=== PATIENT | male | born 1975 | race Caucasian/White ===

== ENCOUNTER 2017-02-04 16:24 | Emergency (ER) | payer BC ==
[2017-02-04 16:38] VITALS: BP 123/76; PULSE 87; RESP 16; TEMP 98.4
[2017-02-04] MEDS ORDERED: methylPREDNISolone SOD SUCCI 125 MG/2 ML VIAL IM STA (17:08)
[2017-02-04] MEDS ORDERED: KETOROLAC 60 MG/2 ML VIAL IM STA (17:08)
--- NOTE | 2017-02-04 17:08 | ED ---
Lower Extremity Injury HPI - General Chief Complaint: Extremity Injury, Lower Stated Complaint: Foot Pain Time Seen by Provider: 02/04/17 16:55 Source: patient, RN notes reviewed Mode of arrival: ambulatory Limitations: no limitations - History of Present Illness Initial Comments: 41-year-old male presents to the emergency department with a chief complaint of right toe pain. Patient's history of gout and states that he will this morning is that this has flared up. Patient states that he has pain to his right toe hurts that she just rashes across. Patient is much like his normal gout. Patient states that he has no falls traumas or injuries to the foot. Patient has any fever chills. Patient states she was concerned due to his symptoms without that he should be evaluated. Patient denies any recent fever, chills, shortness of breath, chest pain, back pain, abdominal pain, nausea vomiting, numbness or tingling, dysuria or hematuria, constipation or diarrhea, headaches or visual changes, or any other current symptoms. - Related Data Home Medications Medication Instructions Recorded Confirmed Ibuprofen [Motrin] 200 - 400 mg PO Q6HR PRN 02/04/17 02/04/17 Previous Rx's Medication Instructions Recorded predniSONE 50 mg PO DAILY #5 tab 02/04/17 Allergies Allergy/AdvReac Type Severity Reaction Status Date / Time No Known Allergies Allergy Verified 02/04/17 16:41 Review of Systems ROS Statement: Those systems with pertinent positive or pertinent negative responses have been documented in the HPI. ROS Other: All systems not noted in ROS Statement are negative. Past Medical History Past Medical History: No Reported History History of Any Multi-Drug Resistant Organisms: None Reported Past Surgical History: Hernia Repair Past Psychological History: No Psychological Hx Reported Smoking Status: Never smoker Past Alcohol Use History: Occasional Past Drug Use History: None Reported General Exam - General Exam Comments Initial Comments: General: The patient is awake and alert, in no distress, and does not appear acutely ill. Neck: The neck is supple, there is no tenderness. Cardiovascular: There is a regular rate and rhythm. No murmur, rub or gallop is appreciated. Respiratory: Lungs are clear to auscultation, respirations are non-labored, breath sounds are equal. No wheezes, stridor, rales, or rhonchi. Musculoskeletal: Sensation intact with 2+ pulses throughout the right lower extremity. Patient does have tenderness patient the right big toe with mild swelling and redness. There is no drainage no abrasion. Fund motion of right ankle. Neurological: CN II-XII intact, There are no obvious motor or sensory deficits. Coordination appears grossly intact. Speech is normal. Skin: Skin is warm and dry and no rashes or lesions are noted. Psychiatric: Normal mood and affect. Limitations: no limitations Course Vital Signs 02/04/17 16:35 Temperature 98.4 F Pulse Rate 87 Respiratory 16 Rate Blood Pressure 123/76 O2 Sat by Pulse 98 Oximetry Medical Decision Making - Medical Decision Making 41-year-old male with a past medical history of gout presents for what he thinks is a gout flare. This and will give him a short course of steroids. We did discuss follow-up with his doctor return parameters and all questions. Patient stated that he understood these agree with this plan. All questions have been answered. This time the patient will be discharged home. Disposition Clinical Impression: Acute gout Disposition: HOME SELF-CARE Condition: Stable Instructions: Gout (ED) Additional Instructions: Please use medication as discussed. Please follow up with family doctor if symptoms have not improved over the next two days. Please return to the emergency room if your symptoms increase or worsen or for any other concerns. Prescriptions: predniSONE 50 mg PO DAILY #5 tab Referrals: Biju Deleon MD [Primary Care Provider] - 1-2 days Time of Disposition: 17:08
== END 2017-02-04 17:21 | disposition home or self-care (01) ==
LOC: EC 16:24
DX: M10.9 Gout, unspecified (principal)
CPT/HCPCS: 99283; 96372 ×2; J2930; J1885

== ENCOUNTER 2017-03-12 11:08 | Inpatient (IN) | payer BC ==
[2017-03-12] MEDS ORDERED: FAMOTIDINE 20 MG/2 ML VIAL IV STA (11:47)
[2017-03-12] MEDS ORDERED: SODIUM CHLORIDE 0.9% 1,000 ML IV STA (11:47)
[2017-03-12] MEDS ORDERED: ONDANSETRON 4 MG/2 ML VIAL IVP STA (11:47)
--- NOTE | 2017-03-12 11:49 | ED ---
General Adult HPI - General Chief complaint: Abdominal Pain Stated complaint: abdominal Pain Time Seen by Provider: 03/12/17 11:42 Source: patient, RN notes reviewed Mode of arrival: ambulatory Limitations: no limitations - History of Present Illness Initial comments: 41-year-old male presents to the emergency Department chief complaint of right sided abdominal pain. Patient states this started ABOUT 8:00am. PATIENT STATES IN THE RIGHT SIDE OF HIS ABDOMEN. PATIENT STATES THE CHEST IS CONSTANT TYPE PAIN COMES AND GOES AND GETS WORSE. PATIENT STATES HE IS NO RADIATION PATIENT DENIES ANY RADIATION TO THE BACK. PATIENT DENIES ANY CHEST PAIN OR SHORTNESS OF BREATH WITH THIS. PATIENT STATES HE HAS HAD NAUSEA WITHOUT VOMITING. PATIENT DENIES ANY COUGH COLD. PATIENT WAS CONCERNED DUE TO HIS SYMPTOMS WITHOUT THAT HE SHOULD BE EVALUATED. Patient has a history of this any abdominal surgeries in the past.Patient denies any recent fever, chills, shortness of breath, chest pain, back pain, vomiting, numbness or tingling, dysuria or hematuria, constipation or diarrhea, headaches or visual changes, or any other current symptoms. - Related Data Home Medications Medication Instructions Recorded Confirmed Ibuprofen [Motrin] 800 mg PO DAILY PRN 03/12/17 03/12/17 Allergies Allergy/AdvReac Type Severity Reaction Status Date / Time No Known Allergies Allergy Verified 03/12/17 12:04 Review of Systems ROS Statement: Those systems with pertinent positive or pertinent negative responses have been documented in the HPI. ROS Other: All systems not noted in ROS Statement are negative. Past Medical History Past Medical History: No Reported History History of Any Multi-Drug Resistant Organisms: None Reported Past Surgical History: Hernia Repair Past Psychological History: No Psychological Hx Reported Smoking Status: Never smoker Past Alcohol Use History: Occasional Past Drug Use History: None Reported General Exam - General Exam Comments Initial Comments: General: The patient is awake and alert, in no distress, and does not appear acutely ill. Eye: Pupils are equal, round and reactive to light, extra-ocular movements are intact; there is normal conjunctiva bilaterally. No signs of icterus. Ears, nose, mouth and throat: There are moist mucous membranes. Neck: The neck is supple, there is no tenderness. Cardiovascular: There is a regular rate and rhythm. No murmur, rub or gallop is appreciated. Respiratory: Lungs are clear to auscultation, respirations are non-labored, breath sounds are equal. No wheezes, stridor, rales, or rhonchi. Gastrointestinal: Soft, non-distended, minimal right-sided tenderness of the abdomen without masses or organomegaly noted. There is no rebound or guarding present. No CVA tenderness. Bowel sounds are unremarkable. Back: There is no tenderness to palpation in the midline. There is no obvious deformity. No rashes noted. Musculoskeletal: Normal ROM, no tenderness, There is no pedal edema. There is no calf tenderness or swelling. Sensation intact. Pulses equal bilaterally 2+. Neurological: CN II-XII intact, There are no obvious motor or sensory deficits. Coordination appears grossly intact. Speech is normal. Skin: Skin is warm and dry and no rashes or lesions are noted. Psychiatric: Cooperative, appropriate mood & affect, normal judgment. Limitations: no limitations Course Vital Signs 03/12/17 11:17 Temperature 98.2 F Pulse Rate 74 Respiratory 16 Rate Blood Pressure 142/81 O2 Sat by Pulse 99 Oximetry EKG Findings - EKG Comments: EKG Findings:: normal sinus rhythm with sinus arrhythmia 60 bpm, normal axis, no atopy, no S-T depressions or elevations, Medical Decision Making - Medical Decision Making 41-year-old male presents to the emergency Department chief complaint abdominal pain. Similarly presented the physician elevated white count. Patient continues to have right-sided abdominal pain. At this time for a change. There is concern for possible acute early appendicitis. At this time Dr. Dr. Dr. Liu who states patient should be admitted. We will admit the patient keep him a meal at this time. - Lab Data Result diagrams: 03/12/17 11:55 03/12/17 11:55 Lab Results 03/12/17 03/12/17 03/12/17 Range/Units 11:55 11:55 11:55 WBC 7.1 (3.8-10.6) k/uL RBC 5.15 (4.30-5.90) m/uL Hgb 15.1 (13.0-17.5) gm/dL Hct 45.5 (39.0-53.0) % MCV 88.3 (80.0-100.0) fL MCH 29.2 (25.0-35.0) pg MCHC 33.1 (31.0-37.0) g/dL RDW 14.1 (11.5-15.5) % Plt Count 230 (150-450) k/uL Neutrophils % 65 % Lymphocytes % 22 % Monocytes % 7 % Eosinophils % 3 % Basophils % 1 % Neutrophils # 4.7 (1.3-7.7) k/uL Lymphocytes # 1.5 (1.0-4.8) k/uL Monocytes # 0.5 (0-1.0) k/uL Eosinophils # 0.2 (0-0.7) k/uL Basophils # 0.0 (0-0.2) k/uL Sodium 139 (137-145) mmol/L Potassium 4.1 (3.5-5.1) mmol/L Chloride 107 (98-107) mmol/L Carbon Dioxide 23 (22-30) mmol/L Anion Gap 9 mmol/L BUN 20 (9-20) mg/dL Creatinine 1.11 (0.66-1.25) mg/dL Est GFR (MDRD) Af Amer >60 (>60 ml/min/1.73 sqM) Est GFR (MDRD) Non-Af >60 (>60 ml/min/1.73 sqM) Glucose 119 H (74-99) mg/dL Calcium 9.4 (8.4-10.2) mg/dL Total Bilirubin 0.4 (0.2-1.3) mg/dL AST 28 (17-59) U/L ALT 57 (21-72) U/L Alkaline Phosphatase 74 (38-126) U/L Total Creatine Kinase 71 (55-170) U/L CK-MB (CK-2) 1.4 (0.0-2.4) ng/mL CK-MB (CK-2) Rel Index 2.0 Troponin I <0.012 (0.000-0.034) ng/mL Total Protein 6.2 L (6.3-8.2) g/dL Albumin 3.8 (3.5-5.0) g/dL Amylase <30 L (30-110) U/L Lipase 39 (23-300) U/L Urine Color Urine Appearance (Clear) Urine pH (5.0-8.0) Ur Specific [place] (1.001-1.035) Urine Protein (Negative) Urine Glucose (UA) (Negative) Urine Ketones (Negative) Urine Blood (Negative) Urine Nitrite (Negative) Urine Bilirubin (Negative) Urine Urobilinogen (<2.0) mg/dL Ur Leukocyte Esterase (Negative) 03/12/17 Range/Units 12:26 WBC (3.8-10.6) k/uL RBC (4.30-5.90) m/uL Hgb (13.0-17.5) gm/dL Hct (39.0-53.0) % MCV (80.0-100.0) fL MCH (25.0-35.0) pg MCHC (31.0-37.0) g/dL RDW (11.5-15.5) % Plt Count (150-450) k/uL Neutrophils % % Lymphocytes % % Monocytes % % Eosinophils % % Basophils % % Neutrophils # (1.3-7.7) k/uL Lymphocytes # (1.0-4.8) k/uL Monocytes # (0-1.0) k/uL Eosinophils # (0-0.7) k/uL Basophils # (0-0.2) k/uL Sodium (137-145) mmol/L Potassium (3.5-5.1) mmol/L Chloride (98-107) mmol/L Carbon Dioxide (22-30) mmol/L Anion Gap mmol/L BUN (9-20) mg/dL Creatinine (0.66-1.25) mg/dL Est GFR (MDRD) Af Amer (>60 ml/min/1.73 sqM) Est GFR (MDRD) Non-Af (>60 ml/min/1.73 sqM) Glucose (74-99) mg/dL Calcium (8.4-10.2) mg/dL Total Bilirubin (0.2-1.3) mg/dL AST (17-59) U/L ALT (21-72) U/L Alkaline Phosphatase (38-126) U/L Total Creatine Kinase (55-170) U/L CK-MB (CK-2) (0.0-2.4) ng/mL CK-MB (CK-2) Rel Index Troponin I (0.000-0.034) ng/mL Total Protein (6.3-8.2) g/dL Albumin (3.5-5.0) g/dL Amylase (30-110) U/L Lipase (23-300) U/L Urine Color Yellow Urine Appearance Clear (Clear) Urine pH 6.0 (5.0-8.0) Ur Specific [place] 1.017 (1.001-1.035) Urine Protein Negative (Negative) Urine Glucose (UA) Negative (Negative) Urine Ketones Negative (Negative) Urine Blood Negative (Negative) Urine Nitrite Negative (Negative) Urine Bilirubin Negative (Negative) Urine Urobilinogen <2.0 (<2.0) mg/dL Ur Leukocyte Esterase Negative (Negative) - Radiology Data Radiology results: report reviewed, image reviewed Disposition Clinical Impression: Acute appendicitis, Abdominal pain Disposition: ADMITTED IP TO THIS [facility] Condition: Stable Referrals: Biju Deleon MD [Primary Care Provider] - 1-2 days Time of Disposition: 14:23 Decision Date: 03/12/17 Decision Time: 14:23
[2017-03-12 12:19] LABS: Basophils % (A) 1 %; CH 30.6; CHCM 34.9; Eosinophils # (A) 0.2 k/uL (0-0.7); Eosinophils % (A) 3 %; HCT 45.5 % (39.0-53.0); HDW 2.58; HGB 15.1 gm/dL (13.0-17.5); Luc # (Auto) 0.19; Luc % (Auto) 3; Lymphocytes # (A) 1.5 k/uL (1.0-4.8); Lymphocytes % (A) 22 %; MCH 29.2 pg (25.0-35.0); MCHC 33.1 g/dL (31.0-37.0); MCV 88.3 fL (80.0-100.0); Mean Platelet Volume 7.3; Monocytes # (A) 0.5 k/uL (0-1.0); Monocytes % (A) 7 %; Neutrophils # (A) 4.7 k/uL (1.3-7.7); Neutrophils % (A) 65 %; RBC 5.15 m/uL (4.30-5.90); RDW 14.1 % (11.5-15.5); WBC 7.1 k/uL (3.8-10.6); WBC (Perox) 6.83
[2017-03-12 12:28] LABS: ALT 57 U/L (21-72); AST 28 U/L (17-59); Alkaline Phosphatase 74 U/L (38-126); Amylase <30 U/L (30-110); Anion Gap 9 mmol/L; Blood Urea Nitrogen 20 mg/dL (9-20); Calcium 9.4 mg/dL (8.4-10.2); Carbon Dioxide 23 mmol/L (22-30); Chloride 107 mmol/L (98-107); Glucose 119 mg/dL (74-99); Non-African American GFR(MDRD) >60 (>60 ml/min/1.73 sqM); Potassium 4.1 mmol/L (3.5-5.1); Sodium 139 mmol/L (137-145); Total Bilirubin 0.4 mg/dL (0.2-1.3); Total Protein 6.2 g/dL (6.3-8.2)
[2017-03-12 12:35] LABS: Appearance,Urine Clear (Clear); Bilirubin,Urine Negative (Negative); Glucose,Urine (UA) Negative (Negative); Ketones,Urine Negative (Negative); Leukocyte Esterase,Urine Negative (Negative); Nitrite,Urine Negative (Negative); Protein,Urine Negative (Negative); Specific Gravity,Urine 1.017 (1.001-1.035); UA Billing (MACRO vs. MICRO) CHEM; Urobilinogen,Urine <2.0 mg/dL (<2.0)
[2017-03-12 12:36] LABS: Creatine Kinase 71 U/L (55-170)
--- NOTE | 2017-03-12 12:38 | XR ---
EXAMINATION TYPE: XR abdomen 2V DATE OF EXAM: 03/12/2017 12:30 PM CLINICAL HISTORY: Right-sided abdominal pain and nausea for one day TECHNIQUE: Single supine KUB image of the abdomen is obtained. COMPARISON: None. FINDINGS: Scattered gas is seen in non-distended small bowel loops. Gas and fecal material is seen in non-distended colon. There are no abnormal calcifications appreciated. The lung bases are clear and the osseous structures are intact. IMPRESSION: Nonobstructive bowel gas pattern.
[2017-03-12 12:50] LABS: Creatine Kinase MB 1.4 ng/mL (0.0-2.4); Troponin I <0.012 ng/mL (0.000-0.034)
[2017-03-12] MEDS ORDERED: RX INFO: IV CONTRAST WAS GIVEN 1 EACH MISC MISCELLANE PRN (13:00)
[2017-03-12] MEDS ORDERED: DICYCLOMINE 10 MG/ML 2 ML AMP IM STA (13:46)
[2017-03-12] MEDS ORDERED: KETOROLAC 30 MG/ML 1 ML VIAL IVP STA (13:46)
--- NOTE | 2017-03-12 14:08 | CT ---
EXAMINATION TYPE: CT abdomen pelvis w con DATE OF EXAM: 03/12/2017 COMPARISON: NONE HISTORY: Abdominal pain CT DLP: 2352 mGycm CONTRAST: CT scan of the abdomen and pelvis is performed without Oral Contrast and with IV Contrast, patient in jected with 100 mL of Omnipaque 300. FINDINGS: LUNG BASES-: No visible nodule. No infiltrate. LIVER/GB: No calcified gallstones. No space occupying hepatic lesion. Biliary tree is of normal ca liber. There is evidence of fatty infiltration. PANCREAS: No inflammation. No distinct mass. SPLEEN: No splenic enlargement. No lesion seen. ADRENALS: No nodule. No thickening. KIDNEYS/BLADDER: No hydronephrosis. Nonobstructing 3 mm calculus midpole right kidney. No disctinct renal mass. Urinary bladder grossly unremarkable. BOWEL: The appendix is dilated at 1.2 cm and demonstrates internal foci of increased attenuation over plaque felt to reflect appendicoliths. No significant periappendiceal inflammatory change however is identified. Correlate clinically for early acute appendicitis. Normal bowel caliber. GENITAL ORGANS: No gross abnormality. LYMPH NODES: No greater than 1cm abdominal or pelvic lymph nodes are appreciated. AORTA: No significant abnormality. OSSEOUS STRUCTURES: No significant abnormality is seen. OTHER: Tiny fat-containing umbilical hernia. IMPRESSION: 1. Dilated appendix with appendicoliths and absence of inflammatory change. Correlate clinically for early acute appendicitis. 2. Fatty liver. 3. Nonobstructing 3 mm calculus mid pole right kidney.
[2017-03-12] MEDS ORDERED: HYDROmorphone 1 MG/ML 1 ML SYRINGE IVP STA (14:16)
[2017-03-12] MEDS ORDERED: NALOXONE 0.4 MG/ML 1 ML VIAL IV PRN ×2 (14:23→20:39)
[2017-03-12] MEDS: SODIUM CHLORIDE 0.9% 1,000 ML IV SCH (15:21)
[2017-03-12] MEDS ORDERED: ceFAZolin 3 GM in SODIUM CHLORIDE 0.9% 100 ML IVPB ONE (16:00)
[2017-03-12] MEDS ORDERED: ACETAMINOPHEN IV (For NPO) 1,000 MG in EMPTY BAG 1 BAG IVPB ONE (16:00)
[2017-03-12] MEDS ORDERED: HEPARIN SODIUM,PORCINE 5,000 UNIT/ML 1 ML VIAL SQ ONE (16:00)
--- NOTE | 2017-03-12 16:16 | P.GSHP ---
History of Present Illness H&P Date: 03/12/17 CHIEF COMPLAINT: Right lower quadrant abdominal pain for less than 24 hrs. HISTORY OF PRESENT ILLNESS: The patient is a previously healthy 41-year-old male who presents with less than 1 day history of periumbilical with right lower quadrant abdominal pain. He woke up about 8 a.m. this morning approximately 8 hours ago with increasing periumbilical pain. He denies any previous episodes. He states the intensity of the pain is moderate to severe. He presented with CT abdomen and pelvis consistent with dilated appendix suspicious for appendicitis hence general surgery admission. PAST MEDICAL HISTORY: See list. PAST SURGICAL HISTORY: See list. CURRENT MEDICATIONS: See list. ALLERGIES: DENIES. SOCIAL HISTORY: Non-tobacco user. FAMILY HISTORY: Denies Crohns disease and ulcerative colitis. REVIEW OF ORGAN SYSTEMS: CONSTITUTIONAL: Denies any fever or chills. HEENT: Denies any trouble with vision, hearing or nosebleeds. No difficulty swallowing. LYMPHATIC: The patient denies any lumps and bumps around the neck. ENDOCRINE: Denies any thyroid disorders. Denies any blood sugar glucose intolerance. RESPIRATORY: Denies shortness of breath including chronic cough. CARDIOVASCULAR: Denies history of chest pain with exertion. GASTROINTESTINAL: Denies regurgitation of bile at night as well as intermittent nausea. No blood in stools. GENITOURINARY: Denies any blood in urine or increased urinary frequency. Previous history of kidney stones.` MUSCULOSKELETAL: Has current joint arthritis. NEUROLOGIC: Denies any numbness or tingling along the distal extremities. No seizure disorders or headaches. PSYCHIATRIC: Denies any depression or suicidal ideation. HEMATOLOGIC: Denies any abnormal bleeding or bruising. PHYSICAL EXAMINATION: Vital Signs Temp 98.2 F 03/12/17 11:17 Pulse 73 03/12/17 15:23 Resp 16 03/12/17 15:23 BP 120/73 03/12/17 15:23 Pulse Ox 98 03/12/17 12:19 Intake & Output 03/11/17 03/12/17 03/12/17 18:59 06:59 18:59 Weight 136.078 kg GENERAL: Well developed and in no acute distress. Pleasant. HEENT: No sclera icterus. Extraocular movements grossly intact. Moist buccal mucosa. Head is atraumatic, normocephalic. Hears conversational speech. No nasal drainage. NECK: Supple without lymphadenopathy. No JV distention. CHEST: Non-labored respirations and equal bilateral excursions. CARDIOVASCULAR: Regular rate and rhythm. Palpable 2+ radial pulses. ABDOMEN: Soft, tender at the right lower quadrant. No peritonitis. MUSCULOSKELETAL: No clubbing, cyanosis or edema. NEUROLOGIC: No focal or lateralizing signs. PSYCH: Appropriate affect. Alert and oriented to person, place and time. LABS: Laboratory Last Values WBC 7.1 k/uL (3.8-10.6) 03/12/17 11:55 RBC 5.15 m/uL (4.30-5.90) 03/12/17 11:55 Hgb 15.1 gm/dL (13.0-17.5) 03/12/17 11:55 Hct 45.5 % (39.0-53.0) 03/12/17 11:55 MCV 88.3 fL (80.0-100.0) 03/12/17 11:55 MCH 29.2 pg (25.0-35.0) 03/12/17 11:55 MCHC 33.1 g/dL (31.0-37.0) 03/12/17 11:55 RDW 14.1 % (11.5-15.5) 03/12/17 11:55 Plt Count 230 k/uL (150-450) 03/12/17 11:55 Neutrophils % 65 % 03/12/17 11:55 Lymphocytes % 22 % 03/12/17 11:55 Monocytes % 7 % 03/12/17 11:55 Eosinophils % 3 % 03/12/17 11:55 Basophils % 1 % 03/12/17 11:55 Neutrophils # 4.7 k/uL (1.3-7.7) 03/12/17 11:55 Lymphocytes # 1.5 k/uL (1.0-4.8) 03/12/17 11:55 Monocytes # 0.5 k/uL (0-1.0) 03/12/17 11:55 Eosinophils # 0.2 k/uL (0-0.7) 03/12/17 11:55 Basophils # 0.0 k/uL (0-0.2) 03/12/17 11:55 Sodium 139 mmol/L (137-145) 03/12/17 11:55 Potassium 4.1 mmol/L (3.5-5.1) 03/12/17 11:55 Chloride 107 mmol/L (98-107) 03/12/17 11:55 Carbon Dioxide 23 mmol/L (22-30) 03/12/17 11:55 Anion Gap 9 mmol/L 03/12/17 11:55 BUN 20 mg/dL (9-20) 03/12/17 11:55 Creatinine 1.11 mg/dL (0.66-1.25) 03/12/17 11:55 Est GFR (MDRD) Af Amer >60 (>60 ml/min/1.73 sqM) 03/12/17 11:55 Est GFR (MDRD) Non-Af >60 (>60 ml/min/1.73 sqM) 03/12/17 11:55 Glucose 119 mg/dL (74-99) H 03/12/17 11:55 Calcium 9.4 mg/dL (8.4-10.2) 03/12/17 11:55 Total Bilirubin 0.4 mg/dL (0.2-1.3) 03/12/17 11:55 AST 28 U/L (17-59) 03/12/17 11:55 ALT 57 U/L (21-72) 03/12/17 11:55 Alkaline Phosphatase 74 U/L (38-126) 03/12/17 11:55 Total Creatine Kinase 71 U/L (55-170) 03/12/17 11:55 CK-MB (CK-2) 1.4 ng/mL (0.0-2.4) 03/12/17 11:55 CK-MB (CK-2) Rel Index 2.0 03/12/17 11:55 Troponin I <0.012 ng/mL (0.000-0.034) 03/12/17 11:55 Total Protein 6.2 g/dL (6.3-8.2) L 03/12/17 11:55 Albumin 3.8 g/dL (3.5-5.0) 03/12/17 11:55 Amylase <30 U/L (30-110) L 03/12/17 11:55 Lipase 39 U/L (23-300) 03/12/17 11:55 Urine Color Yellow 03/12/17 12:26 Urine Appearance Clear (Clear) 03/12/17 12:26 Urine pH 6.0 (5.0-8.0) 03/12/17 12:26 Ur Specific [place] 1.017 (1.001-1.035) 03/12/17 12:26 Urine Protein Negative (Negative) 03/12/17 12:26 Urine Glucose (UA) Negative (Negative) 03/12/17 12:26 Urine Ketones Negative (Negative) 03/12/17 12:26 Urine Blood Negative (Negative) 03/12/17 12:26 Urine Nitrite Negative (Negative) 03/12/17 12:26 Urine Bilirubin Negative (Negative) 03/12/17 12:26 Urine Urobilinogen <2.0 mg/dL (<2.0) 03/12/17 12:26 Ur Leukocyte Esterase Negative (Negative) 03/12/17 12:26 STUDIES: CT of the abdomen and pelvis reviewed with findings consistent with dilated appendix with appendicolith. ASSESSMENT: 1. Right lower quadrant pain. 2. Appendicitis. PLAN: 1. I have discussed benefits and risks of laparoscopic appendectomy. 2. Bilateral SCDs. 3. Antibiotics. 4. DVT prophylaxis with heparin. 5. GI prophylaxis. Thank you very much for allowing me to participate in the care of your patient. Past Medical History Past Medical History: No Reported History History of Any Multi-Drug Resistant Organisms: None Reported Past Surgical History: Hernia Repair Past Psychological History: No Psychological Hx Reported Smoking Status: Never smoker Past Alcohol Use History: Occasional Past Drug Use History: None Reported Medications and Allergies Home Medications Medication Instructions Recorded Confirmed Type Ibuprofen [Motrin] 800 mg PO DAILY PRN 03/12/17 03/12/17 History Allergies Allergy/AdvReac Type Severity Reaction Status Date / Time No Known Allergies Allergy Verified 03/12/17 12:04 Surgical - Exam Vital Signs Temp Pulse Resp BP Pulse Ox 98.2 F 74 16 142/81 99 03/12/17 11:17 03/12/17 11:17 03/12/17 11:17 03/12/17 11:17 03/12/17 11:17 Results - Labs 03/12/17 11:55 03/12/17 11:55 Abnormal Lab Results - Last 24 Hours (Table) 03/12/17 Range/Units 11:55 Glucose 119 H (74-99) mg/dL Total Protein 6.2 L (6.3-8.2) g/dL Amylase <30 L (30-110) U/L Microbiology - Last 24 Hours (Table) 03/12/17 12:26 Urine Culture - Preliminary Urine,Clean Catch Diabetes panel 03/12/17 Range/Units 11:55 Sodium 139 (137-145) mmol/L Potassium 4.1 (3.5-5.1) mmol/L Chloride 107 (98-107) mmol/L Carbon Dioxide 23 (22-30) mmol/L BUN 20 (9-20) mg/dL Creatinine 1.11 (0.66-1.25) mg/dL Glucose 119 H (74-99) mg/dL Calcium 9.4 (8.4-10.2) mg/dL AST 28 (17-59) U/L ALT 57 (21-72) U/L Alkaline Phosphatase 74 (38-126) U/L Total Protein 6.2 L (6.3-8.2) g/dL Albumin 3.8 (3.5-5.0) g/dL Calcium panel 03/12/17 Range/Units 11:55 Calcium 9.4 (8.4-10.2) mg/dL Albumin 3.8 (3.5-5.0) g/dL Pituitary panel 03/12/17 Range/Units 11:55 Sodium 139 (137-145) mmol/L Potassium 4.1 (3.5-5.1) mmol/L Chloride 107 (98-107) mmol/L Carbon Dioxide 23 (22-30) mmol/L BUN 20 (9-20) mg/dL Creatinine 1.11 (0.66-1.25) mg/dL Glucose 119 H (74-99) mg/dL Calcium 9.4 (8.4-10.2) mg/dL Adrenal panel 03/12/17 Range/Units 11:55 Sodium 139 (137-145) mmol/L Potassium 4.1 (3.5-5.1) mmol/L Chloride 107 (98-107) mmol/L Carbon Dioxide 23 (22-30) mmol/L BUN 20 (9-20) mg/dL Creatinine 1.11 (0.66-1.25) mg/dL Glucose 119 H (74-99) mg/dL Calcium 9.4 (8.4-10.2) mg/dL Total Bilirubin 0.4 (0.2-1.3) mg/dL AST 28 (17-59) U/L ALT 57 (21-72) U/L Alkaline Phosphatase 74 (38-126) U/L Total Protein 6.2 L (6.3-8.2) g/dL Albumin 3.8 (3.5-5.0) g/dL
[2017-03-12] MEDS: HYDROmorphone 1 MG/ML 1 ML SYRINGE IV PRN (16:37)
[2017-03-12] MEDS ORDERED: PROPOFOL 10 MG/ML 20 ML VIAL IV ONE (18:39)
[2017-03-12] MEDS ORDERED: fentaNYL (PF) 50 MCG/ML 2 ML AMP ONE (18:39)
[2017-03-12] MEDS ORDERED: SUCCINYLCHOLINE CHLORIDE VIAL 200 MG/10 ML VIAL IV ONE (18:39)
[2017-03-12] MEDS ORDERED: IV FLUID CONTINUATION 700 ML IV ONE (18:39)
[2017-03-12] MEDS ORDERED: LIDOCAINE 1% INJ 10MG/ML (20 ML MDV) ONE (18:39)
[2017-03-12] MEDS ORDERED: ROCURONIUM BROMIDE 10 MG/ML 10 ML VIAL IV ONE (18:39)
[2017-03-12] MEDS ORDERED: NEOSTIGMINE 1 MG/ML 10 ML VIAL ONE (18:39)
[2017-03-12] MEDS ORDERED: GLYCOPYRROLATE 0.2 MG/ML 2 ML VIAL ONE (18:39)
[2017-03-12] MEDS ORDERED: MIDAZOLAM 2 MG/2 ML VIAL ONE (18:39)
[2017-03-12] MEDS ORDERED: SODIUM CHLORIDE 0.9% 50 ML with ceFAZolin 3,000 MG IV ONE ×2 (18:49)
[2017-03-12] MEDS ORDERED: BUPIVACAINE-EPI 0.5%-1:200,000 10 ML VIAL SQ ONE (19:12)
[2017-03-12] MEDS ORDERED: LACTATED RINGERS 1,000 ML IV ONE (19:36)
--- NOTE | 2017-03-12 20:47 | P.PCN ---
Date of Procedure: 03/12/17 Preoperative Diagnosis: Acute appendicitis Postoperative Diagnosis: Same Procedure(s) Performed: Laparoscopic appendectomy Implants: Anesthesia: GETA, local Surgeon: Kayla Liu Estimated Blood Loss (ml): 5 Pathology: other (Appendix) Condition: stable Disposition: floor Indications for Procedure: Operative Findings: 1. Acute nonperforated appendicitis, retrocecal 2. Left inguinal hernia. 3. No recurrent hernia on the right. Description of Procedure:
[2017-03-12] MEDS: HYDROmorphone 1 MG/ML 1 ML SYRINGE IVP ONE ×2 (21:11→21:16)
[2017-03-12 22:12] VITALS: RESP 16
[2017-03-13] MEDS: SODIUM CHLORIDE 0.9% 1,000 ML IV SCH (01:56)
[2017-03-13] MEDS: HYDROmorphone 1 MG/ML 1 ML SYRINGE IV PRN ×3 (01:56→09:12)
[2017-03-13 08:17] VITALS: BP 141/81; PULSE 101; TEMP 98.1
--- NOTE | 2017-03-13 10:35 | P.DS ---
Providers Date of admission: 03/12/17 14:40 Expected date of discharge: 03/13/17 Attending physician: Kayla Liu Primary care physician: Biju Gonzalez [facility] Course: 41-year-old male who presented to the emergency room on 03/12/2017 with a chief complaint of right-sided abdominal pain. Patient described the pain as constant pain that comes and goes and also gets worse. Patient denied any chest pain or shortness of breath. Patient did experience nausea without vomiting. White count was 7.1 and hemoglobin was 15.1. Patient was admitted to the hospital under the care of Dr. Liu for possible acute appendicitis. The patient denies any medical history. Patient has a past surgical history of a hernia repair. CT of the pelvis and abdomen (03/12/2017) showed dilated appendix with appendicloths and absence of inflammatory changes, fatty liver, and nonobstructing 3 mm calculus midpole right kidney. On 03/12/2017 patient underwent laparoscopic appendectomy with Dr. Liu. Operative findings included acute nonperforated appendicitis, retrocecal, left inguinal hernia, and no recurrent hernia on the right. The patient's postoperative course was uncomplicated. The patient was seen this morning at the bedside. Patient stated he was feeling well and pain was controlled. Patient denies nausea vomiting shortness of breath or chest pain. The patient has been afebrile since surgery. Patient's last temperature was 98.1 F oral. Blood pressure stable. Impression discharge diagnosis: Present on admission right-sided abdominal pain suspect due to possible acute appendicitis Acute nonperforated appendicitis Left inguinal hernia Status post 03/12/2017 by laparoscopic appendectomy Patient Condition at Discharge: Stable Plan - Discharge Summary New Discharge Prescriptions: New HYDROcodone/APAP 5-325MG [Jackson 5-325] 1 tab PO Q4HR PRN #15 tab PRN Reason: Mild Pain Continue Ibuprofen [Motrin] 800 mg PO DAILY PRN PRN Reason: Pain Discharge Medication List Ibuprofen [Motrin] 800 mg PO DAILY PRN 03/12/17 [History] HYDROcodone/APAP 5-325MG [Jackson 5-325] 1 tab PO Q4HR PRN #15 tab 03/13/17 [Rx] Follow up Appointment(s)/Referral(s): Kayla Liu MD [STAFF PHYSICIAN] - 03/20/17 Biju Deleon MD [Primary Care Provider] - 1-2 days Patient Instructions/Handouts: Laparoscopic Appendectomy (DC) Activity/Diet/Wound Care/Special Instructions: No lifting over 4 pounds in 2 weeks. Discharge Disposition: HOME SELF-CARE
--- NOTE | 2017-04-11 09:37 | P.OP ---
Date of Procedure: 03/12/17 Description of Procedure: SURGEON: MORGAN ANN MD JAVA DEVELOPER WITH SECURITY CLEARANCE: None. PREOPERATIVE DIAGNOSES: 1. Right lower quadrant abdominal pain. 2. Acute appendicitis. 3. Morbid obesity due to excess calories. 4. Body mass index, 40.7. POSTOPERATIVE DIAGNOSES: 1. Right lower quadrant abdominal pain. 2. Acute appendicitis. 3. Morbid obesity due to excess calories. 4. Body mass index, 40.7. 5. Retrocecal acute appendicitis with periappendicitis, without rupture. 6. Left inguinal hernia, indirect. PROCEDURES PERFORMED: 1. Diagnostic laparoscopy. 2. Laparoscopic appendectomy. ANESTHESIA: General with 30 mL 0.50% Marcaine with epinephrine. ESTIMATED BLOOD LOSS: 5 mL. SPECIMENS REMOVED: Appendix. COMPLICATIONS: None. OPERATIVE FINDINGS: 1. Acute nonperforated appendicitis, retrocecal 2. Left inguinal hernia. 3. No recurrent hernia on the right. INDICATIONS: The patient is a 41-year-old male who presents with less than a 24-hour history of right lower quadrant abdominal pain. He reported nausea, including anorexia. He had studies consistent with with acute appendicitis. Benefits and risks, including possibility of open technique were described at length. Informed consent was obtained. DESCRIPTION OR PROCEDURE: Patient was brought to the operating room, laid in supine position. After general induction, the abdomen was prepped and draped in standard sterile fashion. Prior to incision, a timeout protocol was confirmed with surgical team regarding patient's name including procedure to be performed. Preoperative medications were given intraoperatively. Additionally, bilateral SCDs including heparin 5000 units was administered. A transverse infraumbilical incision was made after localizing the skin with anesthetic. A 0 degree 12 mm laparoscopic trocar entry was performed and entered into the peritoneal cavity. The abdomen was insufflated to 15 mmHg of pressure, which he tolerated well. Diagnostic laparoscopy demonstrated no injury to bowel, viscera or mesentery. A 5 mm port was placed just above the pubis. A separate 5 mm port was placed at the left upper quadrant all under direct visualization. The patient was placed in Trendelenburg position with the right side up. A systematic view within the abdominal cavity was started with the small bowel which was unremarkable. The gallbladder was unremarkable. The base of the cecum was without inflammation. The mid to distal appendix was dilated consistent with acute appendicitis including periappendicitis. Appendix was retrocecal initially ascending to the gallbladder. Moderate dissection was performed to free the appendix from the right lower quadrant and advancing to the right flank. A 60 mm Endo LAURO echelon stapler was fired using a rivera vascular load. A staple load was used for complete division of the base of the appendix. The staple line was completely hemostatic. The specimen was removed from the abdominal cavity with a Endo Catch bag through the 12 mm trocar. All instruments and pneumoperitoneum were evacuated from the abdominal cavity. The fascial defect was reapproximated using 0 Vicryl in a Keenan Middleton. A total of 30 mL 0.50 % Marcaine with epinephrine was infiltrated in all wounds for postop analgesia. Dermabond was applied to the skin after reapproximating the incisions with 4-0 Monocryl as described. Skin was cleansed with dilute hydrogen peroxide. At the end of the procedure, needle, sponge, and instrument count was verified correct by director surgical. The patient had tolerated the procedure well, was taken to the postanesthesia care unit in stable condition. Intraoperative abdominal films were reviewed with the patient's family.
== END 2017-03-13 11:58 | disposition home or self-care (01) | DRG 343 ==
LOC: EC 11:08 → 3SUR 14:40 → 5MS5E 15:05
PROVIDERS: ADMIT Surgery Plastic and Reconstructive Surgery; ATTEND Surgery Plastic and Reconstructive Surgery
PROC: 0DTJ4ZZ Resection of Appendix, Percutaneous Endoscopic Approach (ICD-10-PCS; principal; 2017-03-12 08:55)
DX: K35.80 Unspecified acute appendicitis (principal); K76.0 Fatty (change of) liver, not elsewhere classified; K40.90 Unilateral inguinal hernia, without obstruction or gangrene, not specified as recurrent; N20.0 Calculus of kidney; Z87.19 Personal history of other diseases of the digestive system
CPT/HCPCS: 36415; 74020; 74177; 80053; 81003; 82150; 82550; 82553; 83690; 84484; 85025; 87086; 88304; 93005; 96361; 96372; 96374; 96375; 99285

== ENCOUNTER 2019-01-13 22:56 | Emergency (ER) | payer BC, OTHER ==
[2019-01-13] MEDS ORDERED: DIPH,PERTUS(ACELL)TETVAC-LF 0.5 ML VIAL IM ONE (23:21)
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
[2019-01-13 23:43] VITALS: BP 132/70; PULSE 90; RESP 18; TEMP 98.9
[2019-01-14 12:05] LABS: HIV 1 AB Non-Reactive (Non-Reactive); HIV AB P24 Non-Reactive (Non-Reactive); HIV P24 AG Non-Reactive (Non-Reactive)
[2019-01-14 12:54] LABS: Hepatitis C IgG Antibody Non-Reactive (Non-Reactive)
== END 2019-01-14 00:08 | disposition home or self-care (01) ==
LOC: EC 22:56
DX: S60.512A Abrasion of left hand, initial encounter (principal); S09.90XA Unspecified injury of head, initial encounter; Z23 Encounter for immunization; W26.8XXA Contact with other sharp object(s), not elsewhere classified, initial encounter; Y93.89 Activity, other specified; Y92.149 Unspecified place in prison as the place of occurrence of the external cause; Y99.0 Civilian activity done for income or pay
CPT/HCPCS: 36415; 86706; 86803; 87390; 90471; 90715; 99283

== ENCOUNTER → 2019-01-14 | Outpatient (CLI) | payer OTHER ==
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
== END | disposition home or self-care (01) ==
LOC: RAD 12:26
PROVIDERS: ATTEND Emergency Medicine
DX: S93.402A Sprain of unspecified ligament of left ankle, initial encounter (principal); S93.602A Unspecified sprain of left foot, initial encounter

== ENCOUNTER 2019-06-28 21:52 | Emergency (ER) | payer BC ==
[2019-06-28 22:02] VITALS: BP 133/84; PULSE 92; RESP 18; TEMP 97.5
[2019-06-28] MEDS ORDERED: KETOROLAC 60 MG/2 ML VIAL IM STA (22:06)
--- NOTE | 2019-06-28 22:08 | ED ---
Extremity Problem HPI - General Chief complaint: Extremity Problem,Nontraumatic Stated complaint: Toe pain Time Seen by Provider: 06/28/19 22:03 Source: patient Mode of arrival: ambulatory Limitations: no limitations - History of Present Illness Initial comments: 44-year-old male presenting today for chief complaint of left great toe pain. Patient states she has history of gout. Patient states he has pain in his great toe similar to that of the beginning of his gout exacerbations. Patient denies any redness swelling at this time states are sharp shooting pains denies any injury. Denies any fever ankle or calf swelling patient denies any other complaints remaining review of system negative appears well on arrival. - Related Data Previous Rx's Medication Instructions Recorded Indomethacin [Indocin] 50 mg PO TID 5 Days #15 capsule 06/28/19 Allergies Allergy/AdvReac Type Severity Reaction Status Date / Time No Known Allergies Allergy Verified 06/28/19 22:02 Review of Systems ROS Statement: Those systems with pertinent positive or pertinent negative responses have been documented in the HPI. ROS Other: All systems not noted in ROS Statement are negative. Past Medical History Past Medical History: No Reported History Additional Past Medical History / Comment(s): gout History of Any Multi-Drug Resistant Organisms: None Reported Past Surgical History: Appendectomy, Hernia Repair Additional Past Surgical History / Comment(s): rt inguinal hernia repair Past Anesthesia/Blood Transfusion Reactions: No Reported Reaction Past Psychological History: No Psychological Hx Reported Smoking Status: Never smoker Past Alcohol Use History: Occasional Past Drug Use History: None Reported General Exam - General Exam Comments Initial Comments: General: The patient is awake and alert, in no distress, and does not appear acutely ill. Eye: Pupils are equal, round and reactive to light, extra-ocular movements are intact. No nystagmus. There is normal conjunctiva bilaterally. No signs of icterus. Cardiovascular: There is a regular rate and rhythm. No murmur, rub or gallop is appreciated. Respiratory: Lungs are clear to auscultation, respirations are non-labored, breath sounds are equal. No wheezes, stridor, rales, or rhonchi. Musculoskeletal: Normal inspection of the feet bilaterally tender sure patient of the great toe. Normal ROM, but tenderness to range of motion of the left great toe. Strength 5/5. Sensation intact. DP pulses equal bilaterally 2+. Neurological: A&O x 3. CN II-XII intact grossly, There are no obvious motor or sensory deficits. Coordination appears grossly intact. Speech is normal. Skin: Skin is warm and dry and no rashes or lesions are noted. Psychiatric: Cooperative, appropriate mood & affect, normal judgment. Limitations: no limitations Course Vital Signs 06/28/19 21:59 Temperature 97.5 F L Pulse Rate 92 Respiratory 18 Rate Blood Pressure 133/84 O2 Sat by Pulse 97 Oximetry Medical Decision Making - Medical Decision Making 44-year-old male presenting today for chief complaint of left great toe pain history of gout. Pain with range of motion concern for gout exacerbation given IM dose of Toradol will be discharged with indomethacin no other complaints patient appears well and states the symptoms are identical to when he said gout exacerbations the past case discussed with a provider patient discharged appearing well Disposition Clinical Impression: Podagra, Exacerbation of gout Disposition: HOME SELF-CARE Condition: Good Instructions (If sedation given, give patient instructions): Low Purine Diet (ED), Gout (ED) Additional Instructions: Please use medication as discussed. Please follow-up with family doctor in the next 2 days. Please return to emergency room if the symptoms increase or worsen or for any other concerns. Prescriptions: Indomethacin [Indocin] 50 mg PO TID 5 Days #15 capsule Is patient prescribed a controlled substance at d/c from ED?: No Referrals: Biju Deleon MD [Primary Care Provider] - 1-2 days Time of Disposition: 22:07
== END 2019-06-28 22:29 | disposition home or self-care (01) ==
LOC: EC 21:52
DX: M10.072 Idiopathic gout, left ankle and foot (principal)
CPT/HCPCS: 99283; 96372; J1885

== ENCOUNTER 2020-06-08 22:28 | Emergency (ER) | payer BC ==
[2020-06-08 22:32] VITALS: BP 124/76; TEMP 98
[2020-06-08] MEDS ORDERED: ONDANSETRON 4 MG/2 ML VIAL IVP STA (22:41)
[2020-06-08] MEDS ORDERED: SODIUM CHLORIDE 0.9% 1,000 ML IV STA (22:41)
[2020-06-08] MEDS ORDERED: KETOROLAC 15 MG/ML 1 ML VIAL IVP STA ×2 (22:41→23:47)
--- NOTE | 2020-06-08 22:43 | ED ---
General Adult HPI - General Chief complaint: Abdominal Pain Stated complaint: poss kidney stone Source: patient, RN notes reviewed Mode of arrival: ambulatory Limitations: no limitations - History of Present Illness Initial comments: 44-year-old male presents to the emergency room for a chief complaint of "possible kidney stone." Patient reports he has mid back pain that radiates around to his abdomen and groin. Patient states the pain started about an hour ago. Patient admits to nausea denies vomiting. Denies seeing blood in the urine. Patient denies a history of kidney stones.Patient has no other complaints at this time including shortness of breath, chest pain, abdominal pain, nausea or vomiting, headache, or visual changes. - Related Data Previous Rx's Medication Instructions Recorded Indomethacin [Indocin] 50 mg PO TID 5 Days #15 capsule 06/28/19 Ondansetron [Zofran ODT] 4 mg PO Q8HR PRN #15 tab 06/09/20 Tamsulosin [Flomax] 0.4 mg PO DAILY #20 cap 06/09/20 Allergies Allergy/AdvReac Type Severity Reaction Status Date / Time No Known Allergies Allergy Verified 06/08/20 22:32 Review of Systems ROS Statement: Those systems with pertinent positive or pertinent negative responses have been documented in the HPI. ROS Other: All systems not noted in ROS Statement are negative. Past Medical History Past Medical History: No Reported History Additional Past Medical History / Comment(s): gout History of Any Multi-Drug Resistant Organisms: None Reported Past Surgical History: Appendectomy, Hernia Repair Additional Past Surgical History / Comment(s): rt inguinal hernia repair Past Anesthesia/Blood Transfusion Reactions: No Reported Reaction Past Psychological History: No Psychological Hx Reported Smoking Status: Never smoker Past Alcohol Use History: Occasional Past Drug Use History: None Reported General Exam Limitations: no limitations General appearance: alert, in no apparent distress Head exam: Present: atraumatic, normocephalic, normal inspection Eye exam: Present: normal appearance, PERRL, EOMI. Absent: scleral icterus, conjunctival injection, periorbital swelling ENT exam: Present: normal exam, mucous membranes moist Neck exam: Present: normal inspection, full ROM. Absent: tenderness, meningismus, lymphadenopathy Respiratory exam: Present: normal lung sounds bilaterally. Absent: respiratory distress, wheezes, rales, rhonchi, stridor Cardiovascular Exam: Present: regular rate, normal rhythm, normal heart sounds. Absent: systolic murmur, diastolic murmur, rubs, gallop, clicks GI/Abdominal exam: Present: soft, normal bowel sounds. Absent: distended, tenderness, guarding, rebound, rigid Course Vital Signs 06/08/20 22:29 Temperature 98.0 F Pulse Rate 79 Respiratory 22 Rate Blood Pressure 124/76 O2 Sat by Pulse 99 Oximetry Medical Decision Making - Medical Decision Making Vitals are stable. Patient does have leukocytosis which is likely reactive. CMP unremarkable although patient slightly dehydrated. He was given IV fluids. Urinalysis does show [address] abdomen and pelvis without contrast shows a small obstructive calculus in the proximal left ureter with mild left-sided hydronephrosis. There is a small calcified gallstone that is likely incidental finding. Patient was given Toradol which significantly helped with his pain. At this time patient can be discharged home to follow up with urology. He will return here for any worsening symptoms. - Lab Data Result diagrams: 06/08/20 22:43 06/08/20 22:43 Lab Results 06/08/20 06/08/20 06/08/20 Range/Units 22:43 22:43 22:43 WBC 17.8 H (3.8-10.6) k/uL RBC 5.42 (4.30-5.90) m/uL Hgb 16.0 (13.0-17.5) gm/dL Hct 49.3 (39.0-53.0) % MCV 90.9 (80.0-100.0) fL MCH 29.5 (25.0-35.0) pg MCHC 32.5 (31.0-37.0) g/dL RDW 12.9 (11.5-15.5) % Plt Count 316 (150-450) k/uL MPV 6.8 Neutrophils % 69 % Lymphocytes % 23 % Monocytes % 5 % Eosinophils % 1 % Basophils % 0 % Neutrophils # 12.3 H (1.3-7.7) k/uL Lymphocytes # 4.1 (1.0-4.8) k/uL Monocytes # 0.9 (0-1.0) k/uL Eosinophils # 0.1 (0-0.7) k/uL Basophils # 0.1 (0-0.2) k/uL Sodium 139 (137-145) mmol/L Potassium 4.9 (3.5-5.1) mmol/L Chloride 110 H (98-107) mmol/L Carbon Dioxide 22 (22-30) mmol/L Anion Gap 7 mmol/L BUN 24 H (9-20) mg/dL Creatinine 1.18 (0.66-1.25) mg/dL Est GFR (CKD-EPI)AfAm 86 (>60 ml/min/1.73 sqM) Est GFR (CKD-EPI)NonAf 75 (>60 ml/min/1.73 sqM) Glucose 113 H (74-99) mg/dL Calcium 9.2 (8.4-10.2) mg/dL Total Bilirubin 0.4 (0.2-1.3) mg/dL AST 22 (17-59) U/L ALT 34 (4-49) U/L Alkaline Phosphatase 67 (38-126) U/L Total Protein 6.7 (6.3-8.2) g/dL Albumin 4.1 (3.5-5.0) g/dL Amylase 39 (30-110) U/L Lipase 41 (23-300) U/L Urine Color Yellow Urine Appearance Clear (Clear) Urine pH 6.5 (5.0-8.0) Ur Specific [place] 1.027 (1.001-1.035) Urine Protein Trace H (Negative) Urine Glucose (UA) Negative (Negative) Urine Ketones Negative (Negative) Urine Blood Moderate H (Negative) Urine Nitrite Negative (Negative) Urine Bilirubin Negative (Negative) Urine Urobilinogen <2.0 (<2.0) mg/dL Ur Leukocyte Esterase Trace H (Negative) Urine RBC 39 H (0-5) /hpf Urine WBC 1 (0-5) /hpf Ur Squamous Epith Cells <1 (0-4) /hpf Urine Mucus Moderate H (None) /hpf Disposition Clinical Impression: Kidney stone Disposition: HOME SELF-CARE Condition: Good Instructions (If sedation given, give patient instructions): Kidney Stones (ED) Additional Instructions: Please take Motrin for pain. If pain is severe take Tylenol [address] operate machinery while taking this. Take other medications as directed. Follow-up with urology and primary care. Return to the emergency room for any worsening symptoms. Prescriptions: Tamsulosin [Flomax] 0.4 mg PO DAILY #20 cap Ondansetron [Zofran ODT] 4 mg PO Q8HR PRN #15 tab PRN Reason: Nausea Is patient prescribed a controlled substance at d/c from ED?: No Referrals: Biju Deleon MD [Primary Care Provider] - 1-2 days Time of Disposition: 00:02
[2020-06-08 23:01] LABS: Basophils # (A) 0.1 k/uL (0-0.2); Basophils % (A) 0 %; Eosinophils # (A) 0.1 k/uL (0-0.7); Eosinophils % (A) 1 %; HCT 49.3 % (39.0-53.0); Lymphocytes # (A) 4.1 k/uL (1.0-4.8); Lymphocytes % (A) 23 %; MCH 29.5 pg (25.0-35.0); MCHC 32.5 g/dL (31.0-37.0); MCV 90.9 fL (80.0-100.0); Mean Platelet Volume 6.8; Monocytes # (A) 0.9 k/uL (0-1.0); Monocytes % (A) 5 %; Neutrophils # (A) 12.3 k/uL (1.3-7.7); Neutrophils % (A) 69 %; Platelet Count 316 k/uL (150-450); RBC 5.42 m/uL (4.30-5.90); RDW 12.9 % (11.5-15.5); WBC 17.8 k/uL (3.8-10.6)
[2020-06-08 23:10] LABS: Albumin 4.1 g/dL (3.5-5.0); Calcium 9.2 mg/dL (8.4-10.2); Potassium 4.9 mmol/L (3.5-5.1); Total Bilirubin 0.4 mg/dL (0.2-1.3); Total Protein 6.7 g/dL (6.3-8.2)
[2020-06-08 23:15] LABS: Appearance,Urine Clear (Clear); Bilirubin,Urine Negative (Negative); Blood,Urine Moderate (Negative); Color,Urine Yellow; Glucose,Urine (UA) Negative (Negative); Ketones,Urine Negative (Negative); Leukocyte Esterase,Urine Trace (Negative); Mucus,Urine Moderate /hpf; Nitrite,Urine Negative (Negative); PH, Urine 6.5 (5.0-8.0); Protein,Urine Trace (Negative); RBC,Urine 39 /hpf (0-5); Specific Gravity,Urine 1.027 (1.001-1.035); Squamous Epithelial Cell,Urine <1 /hpf (0-4); Urobilinogen,Urine <2.0 mg/dL (<2.0); WBC,Urine 1 /hpf (0-5)
--- NOTE | 2020-06-08 23:34 | CT ---
EXAMINATION TYPE: CT abdomen pelvis wo con DATE OF EXAM: 06/08/2020 COMPARISON: 03/12/2017 HISTORY: Left flank pain CT DLP: 2290.9 mGycm Automated exposure control for dose reduction was used. Lung bases are clear. There is no pleural effusion. There is no pericardial effusion. There is fatty infiltration of the liver. There is small calcified gallstone. Spleen is intact. Stomach is intact. T here is no pancreatic mass. There is no adrenal mass. Kidneys have normal size. There is mild fullness of the left renal pelvis. There is 3 mm obstructing calculus in the proximal left ureter. There is no retroperitoneal adenopath y. Bladder distends smoothly. There is no inguinal hernia. There are a few diverticula in the sigmoid colon. There is no evidence of diverticulitis. There is no evidence of pelvic mass. Appendix is not seen. There is no sign of thickened appendix. There is 1.5 cm cortical cyst lateral right kidney. There is no mesenteric edema. There is no ascites or free air. There is no bowel obstruction. There i s no sign of intestinal wall thickening. Lumbar vertebra have normal alignment. Disc spaces are fairly normal. Posterior elements are intact. Bony pelvis appears intact. Hip joints appear intact. IMPRESSION: There is small obstructing calculus in the proximal left ureter with mild left-sided hydronephrosis. Obstruction is new compared to old exam. There is some fatty infiltration of the liver. Small calcified gallstone appears new compared to old exam.
[2020-06-09] MEDS ORDERED: ACET/COD 300 MG/30 MG STARTER PACK 6 TAB BTL PO STA (00:07)
--- NOTE | 2020-06-09 00:10 | XR ---
EXAMINATION TYPE: XR KUB portable DATE OF EXAM: 06/08/2020 COMPARISON: 03/12/2017 HISTORY: Flank pain TECHNIQUE: FINDINGS: There is no sign of intestinal obstruction or pneumoperitoneum. Fecal pattern is normal. Th ere is no evidence of a mass. There are no pathologic calcifications over the kidneys. IMPRESSION: Nonacute abdomen. No adverse change.
[2020-06-09 00:33] VITALS: PULSE 74; RESP 16
== END 2020-06-09 00:34 | disposition home or self-care (01) ==
LOC: EC 22:28
DX: N13.2 Hydronephrosis with renal and ureteral calculous obstruction (principal); K80.80 Other cholelithiasis without obstruction; D72.829 Elevated white blood cell count, unspecified; E86.0 Dehydration; Z90.89 Acquired absence of other organs
CPT/HCPCS: 36415; 80053; 82150; 83690; 85025; 81001; 74018; 74176; 99284; 96374; 96375; 96376; 96361; J2405; J1885 ×2

== ENCOUNTER → 2020-10-26 | Outpatient (CLI) | payer BC ==
--- NOTE | 2020-10-26 13:41 | MR ---
EXAMINATION TYPE: MR lumbar spine wo con DATE OF EXAM: 10/26/2020 COMPARISON: CT 06/08/2020 HISTORY: Low back pain TECHNIQUE: Multiplanar, multisequence images of the lumbar spine were acquired. L1-L2: Normal disc appearance without desiccation. No herniation, protrusion or disc bulging. No ca nal stenosis is present. Foramina are patent bilaterally. L2-L3: Normal disc appearance without desiccation. No herniation, protrusion or disc bulging. No ca nal stenosis is present. Foramina are remarkable for some possible encroachment on the right inferio rly possibly contributed by short pedicles. L3-L4: Posterior broad-based disc bulge causes slight anterior mass effect on the thecal sac. Hypertr ophic ligamentum flavum causes some minimal posterior lateral mass effect on the thecal sac. Circumfe rential extension of disc bulge encroaches somewhat on the foramina. L4-L5: Some loss of disc signal is consistent with disc desiccation. Circumferential extension endpla te disc complex may encroach somewhat on the foramina at the inferior margins L5-S1: Circumferential disc bulge may encroach somewhat on the foramina. Lumbar segments are intact. No paraspinal masses are identified. Conus medullaris has a normal appe arance. Foci of increased signal on T1 and T2-weighted sequences within the sacrum, multiple lumbar v ertebral bodies are consistent with hemangiomas. There is no significant spinal stenosis. Mild spinal curvature is noted. IMPRESSION: No sizable disc herniation or significant spinal stenosis. Additional findings above.
== END | disposition home or self-care (01) ==
LOC: RADMRIMAIN 07:54
PROVIDERS: ATTEND Family Medicine
DX: M51.26 Other intervertebral disc displacement, lumbar region (principal); M51.27 Other intervertebral disc displacement, lumbosacral region; M43.8X6 Other specified deforming dorsopathies, lumbar region
CPT/HCPCS: 72148

== ENCOUNTER 2021-07-27 07:56 | Day surgery (SDC) | payer BC ==
[2021-07-25 15:43] VITALS: BMI 46.7
[~2021-07-27 07:56] MED LIST: LACTATED RINGERS 1,000 ML IV SCH; LIDOCAINE 1% (10MG/ML) FOR IV START INTRADERMA PRN
[2021-07-27 08:31] VITALS: TEMP 97.8
[2021-07-27] MEDS ORDERED: PROPOFOL 10 MG/ML 20 ML VIAL IV ONE (09:33)
--- NOTE | 2021-07-27 09:47 | P.PCN ---
Date of Procedure: 07/27/21 Procedure(s) Performed: BRIEF HISTORY: Patient is a 46-year-old pleasant white male scheduled for an elective colonoscopy as a part of screening for colon cancer. His family history of colon cancer diagnosed in his bowel internal and maternal grandfather in his 60s and 70s respectively. PROCEDURE PERFORMED: Colonoscopy. PREOPERATIVE DIAGNOSIS: Screening for colon cancer and family history of colon cancer. IV sedation per Anesthesia. PROCEDURE: After informed consent was obtained, the patient, was brought into the endoscopy unit. IV sedation was administered by Anesthesia under continuous monitoring. Digital rectal examination was normal. Initially the Olympus CF-160 flexible video colonoscope was then inserted in the rectum, gradually advanced into the cecum without any difficulty. Careful examination was performed as the scope was gradually being withdrawn. Ileocecal valve and the appendiceal orifice were visualized and appeared normal. Prep was excellent. Mucosa of the cecum, ascending colon, transverse colon, descending colon, sigmoid colon, and rectum appeared normal. Retroflexion was performed in the rectum and no lesions were seen. Scattered sigmoid diverticula seen. The patient tolerated the procedure well. IMPRESSION: Normal-appearing colon from rectum to cecum no evidence of colorectal neoplasia . Scattered sigmoid diverticulosis. RECOMMENDATIONS: Findings of this examination were discussed with the patient as well as his family. He was advised to have a repeat screening colonoscopy every 5 years because of the family history of colon cancer..
[2021-07-27 09:54] VITALS: RESP 18
[2021-07-27 10:13] VITALS: BP 116/76; PULSE 74
== END 2021-07-27 10:25 | disposition home or self-care (01) ==
LOC: ORWHC2ENDO 07:56
PROVIDERS: ATTEND Internal Medicine Gastroenterology
DX: Z12.11 Encounter for screening for malignant neoplasm of colon (principal); K57.30 Diverticulosis of large intestine without perforation or abscess without bleeding; Z80.0 Family history of malignant neoplasm of digestive organs
CPT/HCPCS: 45378; J2704

== ENCOUNTER → 2023-01-17 | Outpatient (CLI) | payer BC ==
--- NOTE | 2023-01-17 12:21 | XR ---
EXAMINATION TYPE: XR knee complete LT DATE OF EXAM: 01/17/2023 COMPARISON: None HISTORY: Pain TECHNIQUE: 3 view left knee FINDINGS: No acute fracture or dislocation is evident. Patellofemoral joint space is preserved. No meet int effusions. Follow-up MRI can be performed if evaluation of soft tissues would be of benefit. IMPRESSION: 1. No acute osseous abnormality left knee
== END | disposition home or self-care (01) ==
LOC: RADXRMAIN 11:56
PROVIDERS: ATTEND Internal Medicine Geriatric Medicine
DX: M25.562 Pain in left knee (principal)

== ENCOUNTER → 2023-02-02 | Outpatient (CLI) | payer BC ==
--- NOTE | 2023-02-10 22:28 | MR ---
EXAMINATION TYPE: MR knee LT wo con DATE OF EXAM: 02/02/2023 COMPARISON: 01/17/2023 HISTORY: 47-year-old male M25.562, Left knee pain x 4 months, no trauma. TECHNIQUE: Multiplanar, multisequence imaging of the left knee is performed without IV contrast. FINDINGS: The ACL, PCL, MCL, and LCL complex appear intact. A large partial-thickness tear at the junction of the posterior horn and body of the medial meniscus. Inner margin radial tear continues within the body of the medial meniscus. Mild diffuse thinning of medial compartment articular cartilage volume. The lateral meniscus is intact. Lateral compartment articular cartilage volume is maintained. Minimal superficial cartilage fissuring along the mid central aspect of the lateral tibial plateau. Patellofemoral compartment articular cartilage volume is maintained. Minimal superficial fissuring me dial patellar facet. Small superior medial facet may reflect a component of trochlear dysplasia. Slight lateral patellar t ranslation. Extensor mechanism is intact. There is a chronic bone fragment measuring 1.4 cm at the tibial tuberos ity and patellar tendon insertion suggesting old avulsion injury. Some mild edema here suggests ongoi ng motion of the ossicle. Anterior soft tissue swelling. Small joint effusion. No Justice's cyst. Normal popliteal artery anatomy in muscle bulk. No suspicious bone marrow replacement. Patchy red ma rrow hyperplasia may be seen with anemia, obesity, smoking, or chronic disease. IMPRESSION: 1. Large partial thickness tear at the junction of the posterior horn and body of the medial meniscus . Inner margin radial tear extends into the body of the medial meniscus. Mild diffuse thinning of med ial compartment articular cartilage volume. 2. Minimal superficial cartilage fissuring along the mid central aspect of the lateral tibial plateau in the lateral compartment and along the medial patellar facet in the patellofemoral compartment. 3. A 1.4 cm bone fragment at the tibial tuberosity suggesting sequela of old avulsion injury. Some ed keanu here suggests tendinosis and possible irritation from ongoing motion of the ossicle. 4. There may be a component of underlying trochlear dysplasia. Anterior soft tissue swelling.
== END | disposition home or self-care (01) ==
LOC: RADMRIMAIN 06:22
PROVIDERS: ATTEND Internal Medicine Geriatric Medicine
DX: S83.242A Other tear of medial meniscus, current injury, left knee, initial encounter (principal); M79.89 Other specified soft tissue disorders; X58.XXXA Exposure to other specified factors, initial encounter

== ENCOUNTER → 2024-02-27 | Outpatient (CLI) | payer BC ==
--- NOTE | 2024-02-27 13:31 | XR ---
EXAMINATION TYPE: XR lumbar spine 2 or 3V DATE OF EXAM: 02/27/2024 CLINICAL HISTORY: pain TECHNIQUE: Three views of the lumbar spine are submitted. COMPARISON: None. FINDINGS: There are 5 lumbar type vertebral bodies identified. The lumbar spine shows satisfactory alignment w ithout evidence of acute fracture or dislocation. Vertebral body heights are within normal limits. Disc spaces are within normal limits. The overlying soft tissue appears unremarkable. IMPRESSION: No acute fracture or dislocation is seen in the lumbar spine. ICD 10 NO FRACTURE, INITIAL EVALUATION
== END | disposition home or self-care (01) ==
LOC: RADXRMAIN 12:48
PROVIDERS: ATTEND Nurse Practitioner Family
DX: M54.50 Low back pain, unspecified (principal)
CPT/HCPCS: 72100